=== PATIENT | male | born 1975 | race Caucasian/White ===

== ENCOUNTER 2022-08-14 14:29 | Emergency (ER) | payer MEDICARE ==
[~2022-08-14] VITALS: Ht 193 cm; Wt 111.1 kg
[~2022-08-14 14:29] MED LIST: HYDR1TAB PO; MULT-608 PO; OMG1KC PO
[2022-08-14] MEDS ORDERED: KETOROLAC 30 MG/ML VIAL IM ONE (15:30)
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
[2022-08-14] MEDS ORDERED: ACHD5005 PO (16:35)
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
[2022-08-14 16:49] VITALS: BP 102/67
== END 2022-08-14 16:49 | disposition home or self-care (01) ==
LOC: EDUNIT# 14:29 → ER 14:32
DX: S83.92XA Sprain of unspecified site of left knee, initial encounter (principal); F17.210 Nicotine dependence, cigarettes, uncomplicated; V86.96XA Unspecified occupant of dirt bike or motor/cross bike injured in nontraffic accident, initial encounter; Y92.410 Unspecified street and highway as the place of occurrence of the external cause
CPT/HCPCS: 73562; 73590

== ENCOUNTER 2022-08-23 10:47 | Emergency (ER) | payer MEDICARE ==
[~2022-08-23] VITALS: Ht 193 cm; Wt 113.5 kg
[~2022-08-23 10:47] MED LIST changes: +ACHD5005 PO
[2022-08-23] MEDS ORDERED: ACHD5005 PO (11:26)
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
[2022-08-23] MEDS ORDERED: HYDROcodone/APAP 5 MG/325 MG (LORTAB) TAB PO ONE (11:30)
[2022-08-23 11:45] VITALS: BP 134/77
== END 2022-08-23 11:45 | disposition home or self-care (01) ==
LOC: EDUNIT# 10:47 → ER 10:51
DX: S83.412A Sprain of medial collateral ligament of left knee, initial encounter (principal); F17.210 Nicotine dependence, cigarettes, uncomplicated; V86.96XA Unspecified occupant of dirt bike or motor/cross bike injured in nontraffic accident, initial encounter
CPT/HCPCS: 99283

== ENCOUNTER 2023-02-05 10:00 | Emergency (ER) | payer MEDICARE ==
[~2023-02-05] VITALS: Ht 192 cm; Wt 113.0 kg
[2023-02-05] MEDS ORDERED: diphenhydrAMINE 25 MG TAB (BENADRYL) PO ONE (11:15)
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
[2023-02-05] MEDS ORDERED: FAMOTIDINE 20 MG (PEPCID) TABLET PO ONE (11:30)
[2023-02-05] MEDS ORDERED: METH4TAB10 PO (11:35)
[2023-02-05 11:38] VITALS: BP 147/91
== END 2023-02-05 11:40 | disposition home or self-care (01) ==
LOC: EDUNIT# 10:00 → ER 10:03
DX: L23.7 Allergic contact dermatitis due to plants, except food (principal); F17.210 Nicotine dependence, cigarettes, uncomplicated
CPT/HCPCS: 99284